=== PATIENT | male | born 1950 | race Hispanic/Latino ===

== ENCOUNTER 2017-07-08 08:16 | Day surgery (SDC) | payer MEDICARE ==
[2016-12-17 14:06] VITALS: BMI 35.7
[2017-07-08] MEDS ORDERED: Propofol 10 mg/ml Inj (20 ML) ONE (10:32)
[2017-07-08 11:51] VITALS: RESP 16
[2017-07-08 12:06] VITALS: BP 144/92; PULSE 69; TEMP 97.2; O2SAT 98
== END 2017-07-08 13:06 | disposition home or self-care (01) ==
LOC: ENDO 08:16
PROVIDERS: ATTEND Internal Medicine Gastroenterology
DX: K22.70 Barrett's esophagus without dysplasia (principal); K29.50 Unspecified chronic gastritis without bleeding; K44.9 Diaphragmatic hernia without obstruction or gangrene; K21.9 Gastro-esophageal reflux disease without esophagitis
CPT/HCPCS: 43239; 88305; 88312; 88342; J2001; J2704; J7040